=== PATIENT | male | born 1970 | race Caucasian/White ===

== ENCOUNTER 2018-08-18 12:06 | Inpatient (IN) | payer OTHER ==
--- NOTE | 2018-08-18 12:10 | EDPHY ---
HPI/HX/ROS/PE/MDM Narrative: CHIEF COMPLAINT: Cardiac Alert HPI: The patient is a 48 y/o male arriving emergently via EMS as a Cardiac Alert complaining of low chest and upper abdominal pain upon waking this morning. He has a history of hypertension and indigestion. He describes waking up with a "really bad stomachache" and indicates towards his epigastrium. Pain is much more severe than prior reflux and associated with weakness. He describes it as sharp in quality and non-radiating. Nothing makes his pain better or worse. He denies dyspnea or noticing similar symptoms with exertion recently. He has not eaten today. He denies known cardiac disease or history of abdominal surgery. No known family history of cardiac disease or vascular issues. He received aspirin and nitro en route without any change in his pain. REVIEW OF SYSTEMS: A comprehensive 10 system review of systems is otherwise negative aside from elements mentioned in the history of present illness. PMH: Hypertension, hypothyroidism SOCIAL HISTORY: Works in real estate PHYSICAL EXAM: General:Patient is alert, appears uncomfortable, pale. ENT:Eyes are normal to inspection. ENT inspection normal. Neck: Normal inspection. Full range of motion. Respiratory:No respiratory distress. Breath sounds normal bilaterally. Cardiovascular: Regular rate and rhythm. Strong peripheral pulses. Normal cap refill. Abdomen:The abdomen is nontender to palpation. There are no peritoneal signs. Back: Normal to inspection. No tenderness to palpation. Skin: Pale. No rash. Warm and dry. 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 Atraumatic. Full range of motion. Neuro: Oriented x3. Normal motor function. Normal sensory function. ED Course: Cath team at bedside. 1205: Met EMS upon arrival and took report. This is a 48 y/o male with minimal prior history who presents with epigastric pain since waking this morning around 07:00, about 5 hours ago. Symptoms are unchanged after aspirin and nitro en route. He appears pale on exam. BP 104/76, HR 94 upon arrival. Plan for rapid cardiac work up with IV, labs, EKG, and cardiology assessment. 1209: Dr. Luis, pocket machine operator, at bedside. The 12 lead EKG was interpreted by myself. Sinus mechanism. Some lateral ST depression. See hard copy and/or "tracemaster" electronic copy for interpretation. 1210: Plan for echocardiogram. Echo team at bedside. Dr. Luis plans to take patient to minilab operator due to possible echocardiogram and EKG abnormalities and ongoing symptoms. POC troponin is normal. 1223: Patient sent to minilab operator. Critical care time spent by me, Dr. Mott, exclusively with this patient was 15 minutes, exclusive of PA time and exclusive of procedures. The organ system at risk was cardiovascular. Time spent in serial assessments of the patient, consideration of interventions, cardiology consultation, and review of EKG and labs. - Data Points Laboratory Results: Laboratory Results 08/18/18 12:10 08/18/18 08/18/18 08/18/18 12:18 12:13 12:10 WBC RBC Hgb POC Hgb 18.0 gm/dL H gm/dL (13.7-17.5) Hct POC Hct 53 % H % (40-51) MCV MCH MCHC RDW Plt Count MPV Neut % (Auto) Lymph % (Auto) [place] % (Auto) Eos % (Auto) Baso % (Auto) Nucleat RBC Rel Count Absolute Neuts (auto) Absolute Lymphs (auto) Absolute Monos (auto) Absolute Eos (auto) Absolute Basos (auto) Absolute Nucleated RBC Immature Gran % Immature Gran # PT INR APTT POC Sodium 141 mEq/L mEq/L (135-145) Sodium Pending POC Potassium 3.5 mEq/L mEq/L (3.3-5.0) Potassium Pending POC Chloride 103 mEq/L mEq/L (97-110) Chloride Pending Carbon Dioxide Pending Anion Gap Pending POC BUN 13 mg/dL mg/dL (7-23) BUN Pending Creatinine Pending POC Creatinine 0.9 mg/dL mg/dL (0.7-1.3) Estimated GFR Pending Glucose Pending POC Glucose 175 mg/dL H mg/dL (70-100) Calcium Pending Total Bilirubin Pending Conjugated Bilirubin Pending Unconjugated Bilirubin Pending AST Pending ALT Pending Alkaline Phosphatase Pending POC Troponin I 0.01 ng/mL ng/mL (0.00-0.08) Total Protein Pending Albumin Pending Lipase Pending 08/18/18 08/18/18 12:10 12:10 WBC 14.46 10^3/uL H 10^3/uL (3.80-9.50) RBC 5.60 10^6/uL 10^6/uL (4.40-6.38) Hgb 17.6 g/dL H g/dL (13.7-17.5) POC Hgb Hct 49.4 % % (40.0-51.0) POC Hct MCV 88.2 fL fL (81.5-99.8) MCH 31.4 pg pg (27.9-34.1) MCHC 35.6 g/dL g/dL (32.4-36.7) RDW 12.6 % % (11.5-15.2) Plt Count 428 10^3/uL H 10^3/uL (150-400) MPV 10.6 fL fL (8.7-11.7) Neut % (Auto) 83.1 % H % (39.3-74.2) Lymph % (Auto) 10.3 % L % (15.0-45.0) [place] % (Auto) 5.9 % % (4.5-13.0) Eos % (Auto) 0.0 % L % (0.6-7.6) Baso % (Auto) 0.3 % % (0.3-1.7) Nucleat RBC Rel Count 0.0 % % (0.0-0.2) Absolute Neuts (auto) 12.01 10^3/uL H 10^3/uL (1.70-6.50) Absolute Lymphs (auto) 1.49 10^3/uL 10^3/uL (1.00-3.00) Absolute Monos (auto) 0.86 10^3/uL H 10^3/uL (0.30-0.80) Absolute Eos (auto) 0.00 10^3/uL L 10^3/uL (0.03-0.40) Absolute Basos (auto) 0.04 10^3/uL 10^3/uL (0.02-0.10) Absolute Nucleated RBC 0.00 10^3/uL 10^3/uL (0-0.01) Immature Gran % 0.4 % % (0.0-1.1) Immature Gran # 0.06 10^3/uL 10^3/uL (0.00-0.10) PT Pending INR Pending APTT Pending POC Sodium Sodium POC Potassium Potassium POC Chloride Chloride Carbon Dioxide Anion Gap POC BUN BUN Creatinine POC Creatinine Estimated GFR Glucose POC Glucose Calcium Total Bilirubin Conjugated Bilirubin Unconjugated Bilirubin AST ALT Alkaline Phosphatase POC Troponin I Total Protein Albumin Lipase Point of Care Test Results: Chemistry 08/18/18 08/18/18 12:18 12:13 POC Sodium 141 mEq/L mEq/L (135-145) POC Potassium 3.5 mEq/L mEq/L (3.3-5.0) POC Chloride 103 mEq/L mEq/L (97-110) POC BUN 13 mg/dL mg/dL (7-23) POC Creatinine 0.9 mg/dL mg/dL (0.7-1.3) POC Glucose 175 mg/dL H mg/dL (70-100) POC Troponin I 0.01 ng/mL ng/mL (0.00-0.08) ISTAT H&H 08/18/18 12:18 POC Hgb 18.0 gm/dL H gm/dL (13.7-17.5) POC Hct 53 % H % (40-51) General Time Seen by Provider: 08/18/18 12:06 Initial Vital Signs: Initial Vital Signs Temperature (C) 36.6 C 08/18/18 12:08 Heart Rate 92 08/18/18 12:08 Respiratory Rate 18 08/18/18 12:08 Blood Pressure 104/76 08/18/18 12:08 O2 Sat (%) 98 08/18/18 12:08 O2 Delivery Mode Room Air Allergies/Adverse Reactions: No Known Allergies Allergy (Verified 08/18/18 12:13) Home Medications: Medication Instructions Recorded Cyanocobalamin (Vitamin B-12) 1,000 mcg PO DAILY 08/18/18 [Vitamin B-12] Herbals/Supplements -Info Only 1 ea PO DAILY 08/18/18 Lisinopril [Zestril 10 mg (*)] 10 mg PO DAILY 08/18/18 Thyroid [[place] Thyroid 60 MG (*)] 60 mg PO DAILY10 08/18/18 Departure - Departure Disposition: [facility] Inpatient Acute Clinical Impression: Chest pain Qualifiers: Chest pain type: other chest pain Qualified Code(s): R07.89 - Other chest pain Condition: Serious Report Scribed for: Jaime Mott Report Scribed by: Patrizia Corral Date of Report: 08/18/18 Time of Report: 12:15 Physician Review and Approval Statement: Portions of this note were transcribed by an ED scribe. I personally performed the history, physical exam, and medical decision making; and confirm the accuracy of the information in the transcribed note.
[2018-08-18 12:24] LABS: PLATELET COUNT 428 10^3/uL (150-400)
[2018-08-18] MEDS ORDERED: LIDOCAINE 1% 300 MG/30 ML SDV ONE (12:27)
[2018-08-18] MEDS ORDERED: VERAPAMIL 5 MG/2 ML VIAL ONE (12:27)
[2018-08-18] MEDS ORDERED: MIDAZOLAM 2 MG/2 ML VIAL ONE (12:27)
[2018-08-18] MEDS ORDERED: IOPAMIDOL (ISOVUE-370) 150 ML BTL IV ONE (12:27)
[2018-08-18] MEDS ORDERED: HEPARIN 10,000 UNIT/10 ML MDV (1,000 UNIT/ML) ONE (12:27)
[2018-08-18] MEDS ORDERED: fentaNYL 100 MCG/2 ML INJ ONE (12:27)
[2018-08-18 12:32] LABS: INR 0.89 (0.83-1.16); PROTIME(PATIENT) 12.3 SEC (12.0-15.0)
[2018-08-18] MEDS ORDERED: NITROGLYCERIN 0.4 MG BTL SL PRN (13:27)
[2018-08-18] MEDS ORDERED: ATROPINE SULFATE 1 MG/10 ML SYR IVP PRN (13:27)
[2018-08-18] MEDS ORDERED: ONDANSETRON DISINTEGRATING 4 MG TAB PO PRN (13:27)
[2018-08-18] MEDS ORDERED: ONDANSETRON 4 MG/2 ML VIAL IVP PRN ×2 (13:27→16:02)
[2018-08-18] MEDS ORDERED: ACETAMINOPHEN 325 MG TAB PO PRN ×2 (13:27→16:02)
--- NOTE | 2018-08-18 14:17 | GHP ---
CHIEF COMPLAINT: "Doctor, I'm having chest pain." HISTORY OF PRESENT ILLNESS: Mr. Sb Ramos is a 48-year-old man without significant past medi leigh history who was awakened this morning with chest pain in the substernal area just above his xipho id process, which was focal and localized. He has a history of hypertension and indigestion. He ini tially had a really bad stomach ache, and the pain was more severe than prior reflux and associated w ith weakness. He suddenly had worsening pain as well as nausea and vomiting. It got as bad as 05/10 , so he called 911 with concerns that he may be having a heart problem. He received aspirin and nitr oglycerin, and a cardiac alert was called. I was asked to see the patient emergently in the emergenc y department. The patient has not recently traveled, and he does have a history of low testosterone and hypogonadis m and received either a testosterone shot or implant some time in the last 3 or 4 days. His past [facility] history is significant for hypertension and hypothyroidism. 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 He does not smoke, abuse alcohol or illicit drugs. OBJECTIVE: GENERAL: He is awake and alert, oriented x3. NECK: His neck reveals no JVD or carotid bruits. CARDIAC: His heart reveals a normal S1 and S2 with a positive S4. LUNGS: Clear to auscult ation bilaterally. ABDOMEN: Benign with positive bowel sounds. It is nondistended, nontender to pa lpation. I do not appreciate a mass or pulsatile aorta. SKIN: Pale. He does not have a rash. EXT REMITIES: Warm and dry. He has right lower leg atrophy, and the patient reports this is related to a defect. NEUROLOGIC: He is oriented but appears worried and in pain. DATA REVIEWED: The patient's EKG reveals ST-segment depression in leads 2 and AVF as well as V5 and V6 with upsloping depression at rest. There are micro Q-waves in V4, V5 and V6 which are of unclear significance. There is a leftward axis with a -19 axis in the frontal plane. It lists an acute infa rct, but I believe that may be secondary to reversal of leads V3 and V1, therefore suggesting R-wave voltage loss. An old EKG is not available for comparison. His laboratory studies reveal a sodium of 137, potassium 4.80, nonfasting glucose is 172, total bilir ubin 3.4, conjugated bilirubin 2.6, AST 176, ALT 188, alkaline phosphatase 162, an LDH of 743. Point -of-care troponin is negative. IMPRESSION/PLAN: Lower chest pain with EKG changes and resting tachycardia. May be consistent with ischemia given his chest pain syndrome. We are taking him urgently to the catheterization laboratory . If that is negative for myocardial ischemia or obstruction of the coronaries, the patient may bene fit from CT chest to rule out pulmonary embolus given his recent history of testosterone use as well as to scan through the level of his liver and gallbladder to check for either gallstone pancreatitis or cholecystitis. The patient does have an elevated white count as well measured at 14.4 with a left shift. Platelet counts are 426, H and H are 17.6 and 49.4. Blood gas in the dentures lab technician reveals a mil d acidosis with pH 7.32, pCO2 43 and a PO2 of 133 on 2 liters. The patient, as of the time of this d ictation, has a negative heart catheterization for obstructive coronary disease. 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 He does have calcif ication in the proximal LAD on cinefluoroscopy consistent with underlying atherosclerosis; however, n o flow-limiting obstruction, dissection or thrombus is identified. The patient does have elevated bi lirubin, D-dimer and liver enzymes. Lipase is currently pending. I think the patient would benefit from scanning for cholecystitis as well as PE given his recent history of testosterone use. Copy requested to: Primary Care /[id number]/MODL
--- NOTE | 2018-08-18 14:41 | CPEKG ---
Test Reason : OPEN Blood Pressure : / mmHG Vent. Rate : 101 BPM Atrial Rate : 101 BPM P-R Int : 149 ms QRS Dur : 085 ms QT Int : 341 ms P-R-T Axes : -04 -19 032 degrees QTc Int : 442 ms Sinus tachycardia Left ventricular hypertrophy Anterior infarct, old Confirmed by Jaime Mott ([id number]) on 08/18/2018 2:40:36 PM Referred By: Confirmed By:Jaime Mott
--- NOTE | 2018-08-18 14:59 | PDDXCAT ---
Diagnostic Cath Note - . Date: 08/18/18 Rn Diabetes Educator: Janelle Indication: CCC Class III and IV angina on medical treatment - Procedure Access: left wrist Procedure: left heart catheterization, coronary angiography, left ventriculogram - Materials Left Heart Cath size: 5F Left Heart Cath materials: JL4.0, JR4.0, pigtail - Findings-Left Heart Catheterization LM: The left main is 8mm in size and bifurcates into a LAD and circumflex system. There is JAKUB III flow. LAD: The left anterior descending . There is luminal irregularities consistent with athersclorsis. Maximal luminal stenosis is 20%. There is JAKUB III flow. LCX: The circumflex is 4mm in size proximally. There is a high obtuse marginal OM branch that is a function 1mm Ramus vessel. There is an important bifurcating marginal branch with JAKUB III flow. RCA: The right coronary artery is 3.5mm in size and dominant. THe vessel gies rise to a PDA and PLV branch. There is no evidence of flow-limiting disease with JAKUB III flow. EDP: 22mmHg LVEF: Hypercontractile with near mid cavitary obliteration. Wall motion: On LV gram the patient had hypercontractile with near mid cavitary obliteration. There are no resting segmental wall motion abnormalities. The visualized portion of the thoracic aortic valve reveals thress sinuses of valsalva most consistent with a trileaflet valve. There is no gradient on pullback across the aortic valve. There is no evidence of biju dissection or aneurysm formation of the thoracic aorta. - Findings-Right Heart Catheterization AO: 129/70/86 Complications: NONE Estimated blood loss: <50ml Closure method: TR Band Assessment: The patient has [place] vessel coronary disease with a hypercontractile LV with near mid cavitary obliteration. The patient has 10% stenosis in his left anterior descending artery. There is no flow-limiting disease in his left or right coronary systems. The patient had a drastically elevated Lipase, and abnormal liver enzymes, billirubin, alkaline phosphatase. Plan: The patient has [place] vessel coronary disease that does not explain the cause for his chest pain. The patient has drastically elevated Lipase and abnormal liver enzymes. I would like the patient to have a Chest CT Angio to rule out pulmonary embolus given elevated D-Dimer, and also to access the gallbladder, and pancreas. Intervention: NONE Patient Problems: Problems Problem Status Onset Chest pain Acute
[2018-08-18] MEDS: NS 1,000 ML IV SCH ×2 (15:03→18:29)
--- NOTE | 2018-08-18 15:16 | PDGENHP ---
History and Physical History and Physical: HOSPITALIST CONSULT NOTE the patient prefers to be addressed by his middle name Ronald CC: I am asked by the Cardiology service to assist in the care of this patient who comes in with abdominal and chest pain today HISTORY: I am asked by Dr Luis to evaluate and care for this patient who presented earlier today with epigastric and left costochondral pain nausea and vomiting. With ekg abnormalities he was taken emergently to the cardiac lab where he had no significant stenotic coronary disease. There was luminal disease in the LAD with Maximon 20% stenosis. He is in the CVC now recovering from that procedure. However CT scanning shows and he has elevated liver enzymes and bilirubin and a lipase > 20,000. On my review of the patient's symptoms he had an episode in early July with epigastric pain nausea and vomiting that lasted approximately 2 days. Those symptoms resolved but since that time he has felt fatigued with very low energy overall. He did not have any medical evaluation prior to today for these symptoms. This morning he woke up with severe pain in the epigastrium along the left costal margin with nausea and vomiting. He was diaphoretic. With these symptoms he presented to the emergency room. They did not check his temperature at home. There is no blood in his emesis. He has not noticed any jaundice. There is no pain in the back. His bowel function has been normal. He has not traveled anywhere had any exposures to suspicious foods or beverages. None of his relatives or contacts are sick with any similar illness. He has no history of abdominal illness or surgeries prior to the above. He has no use of nonsteroidal anti-inflammatories, no use of alcohol, no history of exposure to potentially toxic chemicals, no significant trauma, and no family history of any abdominal or digestive illnesses. ROS: A comprehensive 10 system review revealed no other significant findings PAST MEDICAL HISTORY: Hypertension Hypothyroidism on replacement FAMILY MEDICAL HISTORY: No abdominal or digestive illnesses of concern, specifically no gallstones and no autoimmune diseases SOCIAL HISTORY: Works as a realtor No tobacco Occasionally half glass of wine but really rare alcohol lives with his is here at the bedside MEDICATIONS: The patients list has been reconciled by our clinical pharmacist in the EMR. I have reviewed the list and ordered appropriate medicines. Lisinopril for hypertension, [place] Thyroid, "bio T" injections PHYSICAL EXAMINATION: Vital Signs: All normal without fever so far It Service Manager: Sinus Examination: General: alert, oriented, good mentation, relaxed but does appear somewhat uncomfortable Skin: warm, dry, good color, no rash or jaundice HEENT: normal Neck: no mass or jvd Resps: relaxed Lungs: clear breath sounds Heart: regular, no murmur Abdomen: soft, nondistended, with some tenderness across the upper abdomen but no rebound or mass, bowel sounds are present Upper Extremities: normal Lower Extremities: no edema, warm No Bleeding or bruising Neurologic: normal speech/language, normal case management assistant, no focal weakness IV site: looks normal LABORATORY DATA: Lipase greater than 20,000 AST 176, ALT 188, alk-phos 162, bilirubin 3.4 Normal basic metabolic panel except for [place] [id number] Hemoglobin is at 17 and hematocrit 49, question hemoconcentration RADIOLOGY STUDIES: I reviewed images from CT scan of the chest and upper abdomen today. I agree that there is no evidence of pulmonary embolism. There is obvious pancreatitis with no evidence of any complications such as infection necrosis or pseudocyst 12 LEAD EKG: Sinus rhythm with some nonspecific ST abnormalities and poor R-wave progression ASSESSMENT: * acute pancreatitis, most likely 2nd episode, most likely due to gallstones but cause is uncertain * Hyperglycemia, question diabetes verses stress-induced hyperglycemia from illness * Dehydration from nausea vomiting * Chronic hypothyroidism on replacement therapy * Chronic hypertension on lisinopril * Mild non occlusive coronary disease with 20% lad stenosis; aggressive prevention measures should be considered with the patient through Cardiology and his primary care service I reviewed the above-listed diagnoses with the patient and with Dr. Martin Luis. PLANS: * Hospital medicine service will take over as primary at this time for this admission * Will change to inpatient status anticipating that this is most likely caused by gallstones and we will likely need to either remove stones or do a cholecystectomy therefore requiring more than 2 nights * Patient is on risk precautions after angiography per Dr. Luis * NPO for the moment, IV hydration * Pain and nausea medicines p.r.n. * Will check a lipid panel to look at triglycerides for his pancreatitis, as well as his cholesterol with coronary atherosclerosis * Check hemoglobin A1c due to his elevated blood sugar * Abdominal ultrasound * Dr. Oleg Herrera has been consulted from Gastroenterology Note that the patient is a [place] patient but states he does not currently have a primary care doctor. I did recommend to the patient that he establish with a primary care doctor in the very near future at [place]. I have reviewed the patient's case in detail with Dr. Martin Luis I have reviewed the patient's past medical records as part of this assessment, including previous emergency visit records here
--- NOTE | 2018-08-18 15:33 | GCON ---
CHIEF COMPLAINT: Pancreatitis, abnormal liver function tests. Epigastric pain. HISTORY OF PRESENT ILLNESS: I have been asked to see this patient in consultation by Dr. Martin Luis for evaluation for pancreatitis and possible gallstone pancreatitis. This 48-year-old gentleman was well until this morning. He woke up with severe epigastric retrosternal chest pain. Pain was colicky in nature. He had associated retching. The ambulance was called. He was brought to the emergency department. He does have a history of hypertension. No prior history of any GI symptoms. The patient was noted to have some EKG changes and resting tachycardia. Ischemic cardiac disease was considered given patient's chest pain syndrome. He went to cardiac cath which was unremarkable. He was noted to have abnormal liver function tests and elevated lipase consistent with pancreatitis. He had a chest CT to rule out pulmonary embolus. Chest CT was remarkable without evidence of pulmonary embolus. However, there was evidence of acute pancreatitis and cholelithiasis within the gallbladder. LABORATORY DATA: Did reveal abnormal liver function tests with a total bilirubin of 3.4, AST 176, ALT of 188, alkaline phosphatase of 162. Lipase was greater than 2000. White count was 14.46 with a hemoglobin of 18 and hematocrit 53. PAST MEDICAL HISTORY: Remarkable for hypertension, hypothyroidism, B12 deficiency, and testosterone deficiency. PAST SURGICAL HISTORY: Remarkable for right shoulder surgery. FAMILY HISTORY: Remarkable for hypertension, otherwise negative as pertains to chief complaint. SOCIAL HISTORY: Nonsmoker, nondrinker. MEDICATIONS: Prior to admission include lisinopril, Synthroid, B12 and testosterone as well as estrogen. ALLERGIES: He has no known drug allergies. REVIEW OF SYSTEMS: Negative 10 systems other than mentioned in HPI. PHYSICAL EXAM: VITAL SIGNS: 106/71, heart rate of 90, respiratory rate 18, 97% saturation on room air. GENERAL: A very pleasant gentleman, no acute distress. HEENT: Normocephalic, atraumatic. EOMI. NECK: Supple. No cervical adenopathy. No thyromegaly. Mucous membranes moist. LUNGS: Clear. CARDIAC: Normal S1, S2 without murmur. ABDOMEN: Soft, but tenderness to palpation in the epigastrium. No hepatosplenomegaly. EXTREMITIES: No clubbing , cyanosis, edema. NEURO: Nonfocal. SKIN: Warm, dry, intact. PSYCH: Alert oriented x3 with normal affect. LABORATORY DATA: Remarkable for liver function tests as mentioned, total bilirubin 3.4, AST of 176, ALT of 188, alkaline phosphatase of 162, lipase of greater than 2000. IMPRESSION: A 48-year-old male with sudden onset of epigastric and low chest pain consistent with acute gallstone pancreatitis. Evidence of gallstones on CT scan of the chest. Patient with obstructive liver enzymes consistent with choledocholithiasis and passage of common bile duct stone. RECOMMENDATIONS: 1. N.p.o., 2. IV fluids. 3. IV analgesia. 4. Right upper quadrant ultrasound to evaluate common bile duct and for evidence of choledocholithiasis. May need to consider MRCP or ERCP pending results of ultrasound. We will follow with you. /[id number]/MODL MTDD
[2018-08-18] MEDS ORDERED: ZOLPIDEM TARTRATE 5 MG TAB PO PRN (16:02)
[2018-08-18] MEDS: HYDROmorphONE/DILAUDID 1 MG/ML INJ IVP PRN ×2 (16:14→20:33)
[2018-08-18] MEDS: OXYCODONE/APAP 5/325 TAB PO PRN (20:37)
[2018-08-18] MEDS ORDERED: MELATONIN 3 MG TAB PO SCH (21:00)
[2018-08-19 04:56] LABS: PLATELET COUNT 304 10^3/uL (150-400)
[2018-08-19] MEDS: OXYCODONE/APAP 5/325 TAB PO PRN ×2 (06:15→11:30)
[2018-08-19] MEDS ORDERED: CYANO/VITAMIN B12 1000 MCG TAB PO SCH (09:00)
[2018-08-19] MEDS ORDERED: LISINOPRIL 10 MG TAB PO SCH (09:00)
[2018-08-19] MEDS ORDERED: THYROID 60 MG TAB PO SCH (10:00)
--- NOTE | 2018-08-19 10:43 | HOSPPROG ---
Hospitalist Progress Note Assessment/Plan: Gallstone pancreatitis - US with extensive cholelithiasis, no ductal dilatation , LFT's trending down -cont NPO, pain control -surgery consult as pt will need cholecystectomy when recovered Hypertension - normotensive on home dose of lisinopril Leukocytosis - suspect stress response to above, no e/o bacterial infection -follow Full code Dispo - cont inpt. CM to check with [place] re: transfer vs stay here, will hold off on surgery consult until this is clarified Objective: Vital Signs Temp Pulse Resp BP Pulse Ox 36.5 C 104 H 19 127/81 H 96 08/19/18 04:00 08/19/18 09:21 08/19/18 09:21 08/19/18 09:21 08/19/18 09:21 Laboratory Results 08/19/18 03:40 08/18/18 08/19/18 08/20/18 05:59 05:59 05:59 Intake Total 2250 Output Total 700 Balance 1550 PT 12.3 SEC (12.0-15.0) 08/18/18 12:10 INR 0.89 (0.83-1.16) 08/18/18 12:10 ICD10 Worksheet Patient Problems: Problems Problem Status Onset Chest pain Acute
--- NOTE | 2018-08-19 10:53 | PDMN ---
Medical Necessity Medical necessity: Pt meets inpt criteria per MD order and MCG M-250, Pancreatitis, 2 days. 48 y/o presenting w/severe epigastric and L costochondral pain w/nausea/vomiting and EKG changes, taken for emergent heart cath- mild non- occlusive coronary disease found, abd US revealed gall bladder completely filled w/gallstones, admitted w/acute pancreatitis (lipase>52485, amylase>3000) most likely due to gallstones and dehydration from N/V. NPO, IVF, IV pain meds, surg intervention pending, anticipate>2Mn for ongoing eval/management of above.
[2018-08-19] MEDS: NS 1,000 ML IV SCH (11:29)
[2018-08-19 11:34] VITALS: BP 124/88
--- NOTE | 2018-08-19 11:53 | SOAPPROG ---
SOAP Progress Note Assessment/Plan: Assessment: 48-year-old male who who initially presented with abdominal and chest discomfort with concerns regarding underlying ischemia. Underwent cardiac catheterization which did not reveal any evidence of coronary disease. Subsequently he has developed findings consistent with choledocholithiasis and gallstone pancreatitis which is being managed by [facility] and Gastroenterology. His access site is clean and dry. He has a nice radial pulse. He currently is not describing any cardiovascular symptoms. Plan: At this point, we will sign off. Please feel free to re-consult if needed. 08/19/18 11:49 Subjective: He has no complaints of chest discomfort today. He does, however, continued to complain of abdominal discomfort which is being controlled with narcotic analgesics. He is being followed by Gastroenterology. I reviewed his cardiac catheterization report which did not indicate any significant CAD. Objective: Vital Signs Temp Pulse Resp BP Pulse Ox 36.5 C 103 H 19 124/88 H 94 08/19/18 04:00 08/19/18 11:34 08/19/18 11:34 08/19/18 11:34 08/19/18 11:34 Laboratory Results 08/19/18 03:40 08/18/18 08/19/18 08/20/18 05:59 05:59 05:59 Intake Total 2250 Output Total 700 Balance 1550 PT 12.3 SEC (12.0-15.0) 08/18/18 12:10 INR 0.89 (0.83-1.16) 08/18/18 12:10 Physical Exam - Physical Exam General Appearance: WD/WN, alert EENT: PERRL/EOMI, normal ENT inspection, pharynx normal, TMs normal Neck: non-tender, full range of motion, supple, normal inspection Respiratory: chest non-tender, lungs clear, normal breath sounds Cardiac/Chest: normal peripheral pulses, regular rate, rhythm Peripheral Pulses: 2+: carotid (R), carotid (L), femoral (R), femoral (L), dorsalis-pedis (R), dorsalis-pedis (L) Male Genitalia: deferred Rectal: deferred Back: Normal inspection Skin: normal color, warm/dry Lymphatic: no adenopathy Extremities: normal range of motion, non-tender, normal inspection, normal capillary refill Neuro/Psych: no motor/sensory deficits, alert, normal mood/affect, oriented x 3 ICD10 Worksheet Patient Problems: Problems Problem Status Onset Chest pain Acute
--- NOTE | 2018-08-19 12:27 | SOAPPROG ---
SOAP Progress Note Assessment/Plan: Assessment: Gallstone Pancreatitis CBD not dilated and LFt improved retained CBD stone less likely Plan: Rec surgical consult, paitent may be transferred to [place] Would suggest IOC at time of surgery to assure CBD clear or consider MRCP per surgical preference Will sign off for now, please reconsult if pt stays here and has abnormal IOC. 08/19/18 12:24 Subjective: CC abd pain Overall better with Percocet, not passing gas Objective: Vital Signs Temp Pulse Resp BP Pulse Ox 36.5 C 103 H 19 124/88 H 94 08/19/18 04:00 08/19/18 11:34 08/19/18 11:34 08/19/18 11:34 08/19/18 11:34 Laboratory Results 08/19/18 03:40 08/18/18 08/19/18 08/20/18 05:59 05:59 05:59 Intake Total 2250 Output Total 700 Balance 1550 PT 12.3 SEC (12.0-15.0) 08/18/18 12:10 INR 0.89 (0.83-1.16) 08/18/18 12:10 Physical Exam - Physical Exam General Appearance: alert Respiratory: lungs clear Cardiac/Chest: regular rate, rhythm Abdomen: soft (tender to palapation ) ICD10 Worksheet Patient Problems: Problems Problem Status Onset Chest pain Acute
--- NOTE | 2018-08-19 14:11 | ASMTDCNOTE ---
Case Management Discharge Discharge Order Complete? Answers: Yes Patient to Obtain Answers: Other Notes: Good Abdirahman Medications Transportation Arranged Answers: [facility] Stretcher Transport will Pick (Date 08/19/2018 01:30 PM & Time) EMTRICHARD Complete Answers: Yes Notes: handed to [facility] Case Management Transport Answers: No Form Complete Faxed Final Orders Answers: No Notes: hard copies provided to [facility] staff Agency/Facility Transfer Answers: Yes Report Printed & Faxed to Receiving Agency Family Notified Answers: Yes Notes: in room Discharge Comments Notes: 08/19/2018 Case Management Note Pt dmitted for pancreatitis needing surgery. Phone call to [facility]. [facility] requesting pt transfer to [facility]. [facility] arranged transport with [facility]. Pt pick up and delivery driver at 14:00. RN called report. EMTRICHARD completed. Providing imaging reports on CD for [facility]. Dr. Carolina Rendon from [facility] [phone]. Dr. Adan Amaya was admitting MD. Date Signed: 08/19/2018 02:11 PM Electronically Signed By:Aurea Conti RN
--- NOTE | 2018-08-19 14:12 | ASDISCHSUM ---
Discharge Information Plan Status:Acute Transfer Medically Cleared to Leave:08/18/2018 Discharge Date:08/19/2018 02:07 PM CM D/C Disposition:[facility] ADT D/C Disposition:[facility] Projected Discharge Date:08/21/2018 11:00 AM Transportation at D/C:ALS/BLS Discharge Delay Reason: Follow-Up Date:08/21/2018 11:00 AM Discharge Slot: Final Diagnosis: Placement Information Referral Type:*Usp/SNF Referral ID:[id number] Provider Name: Address 1: Phone Number: Address 2: Fax Number: City: Selection Factors: State: Patient Contact Information Contact Name:EL Relationship: Address:[address] City:[facility] Phone: [facility]/Zip Code:[place] [address] Email: Financial Information Financial Class:HMO and PPO Plans Primary Plan Desc:[facility] Primary Plan Number:[id number] Secondary Plan Desc: Secondary Plan Number: Assessment Information LACE LACE Comorbidities - select Answers: Other Notes: HTN; Hypothyroid all that apply # of Emergency department Answers: 1-2 visits in the last 6 months Score: 2 Date Signed: 08/19/2018 02:12 PM Electronically Signed By:Aurea Conti RN Case Management Discharge Plan Note Case Management Discharge Discharge Order Complete? Answers: Yes Patient to Obtain Answers: Other Notes: Good Abdirahman Medications Transportation Arranged Answers: [facility] Stretcher Transport will Pick (Date 08/19/2018 01:30 PM & Time) KAMLESHALA Complete Answers: Yes Notes: handed to [facility] Case Management Transport Answers: No Form Complete Faxed Final Orders Answers: No Notes: hard copies provided to [facility] staff Agency/Facility Transfer Answers: Yes Report Printed & Faxed to Receiving Agency Family Notified Answers: Yes Notes: in room Discharge Comments Notes: 08/19/2018 Case Management Note Pt dmitted for pancreatitis needing surgery. Phone call to [place]. [place] requesting pt transfer to [facility]. [facility] arranged transport with [facility]. Pt last picker at 14:00. RN called report. KITTY completed. Providing imaging reports on CD for [facility]. Dr. Carolina Rendon from [place] [phone]. Dr. Adan Amaya was admitting MD. Date Signed: 08/19/2018 02:11 PM Electronically Signed By:Aurea Conti RN Intervention Information
--- NOTE | 2018-08-19 19:01 | GDS ---
DISCHARGE DIAGNOSES: 1. Gallstone pancreatitis. 2. Hypertension. 3. Leukocytosis. CONSULTANTS: 1. Dr. Chauncey Herrera, Gastroenterology. 2. Dr. Alexander Mauro, Cardiology. HISTORY: For details, please see history and physical dated August 18, 2018. In brief, the patient is a 48-year-old male with a history of hypertension, hypothyroidism, and hypogonadism, who presented to the hospital complaining of chest pa in. He was admitted for further management. HOSPITAL COURSE: The patient admitted to the cardiology service due to concern for acute coronary sy ndrome. He underwent a left heart catheterization on August 18, 2018, which revealed 10% stenosis i n his left anterior descending artery. There was no flow-limiting disease. It was thought his prese nting symptoms were not related to a cardiac event. Instead, attention was turned to his elevated li pase and amylase, as well as elevated liver function enzymes. He an underwent abdominal ultrasound w hich showed extensive cholelithiasis, but no intrahepatic ductal dilatation, with a common duct measu rement of 3.7 mm. His LFTs have trended down, with normalization of his bilirubin and alkaline phosp hatase, and his transaminases were also significantly lower on the day of discharge. Given that he i s a [place] patient, the case was reviewed with a [place] team, and they wished for him to transfer [facility] to their hospital for further management. It is recommended he have surgical consultations, and he should likely undergo cholecystectomy during his hospitalization to prevent rehospitalization given his ongoing symptoms suggestive of biliary colic and now presenting with a moderate case of gallstone pancreatitis. He has been continued on n.p.o. for bowel rest and pain control, and surgical consult has been deferred at this point while his pancreatitis cools off. He can undergo surgery consultati on upon transfer to [facility]. Case was discussed with a [place] physician. DISPOSITION: Patient is discharged to [facility] in stable condition for further care per his [place] team. DISCHARGE MEDICATIONS: Please see [place] completed outpatient medication list. Patient will navdeep nue all outpatient medications as previously prescribed, including [place] Thyroid 60 mg p.o. daily, l isinopril 10 mg p.o. daily, vitamin B12. There are no new medications upon transfer. His pain has be en managed with IV Dilaudid. /[id number]/MODL
== END 2018-08-19 14:07 | disposition short-term general hospital (02) | DRG 440 ==
LOC: EDUNIT# → FCATH 14:24 → F2W 15:10 → OBSVTOIN 16:16
PROVIDERS: ADMIT Internal Medicine Cardiovascular Disease; ATTEND Internal Medicine
PROC: B2111ZZ Fluoroscopy of Multiple Coronary Arteries using Low Osmolar Contrast (ICD-10-PCS; principal; 2018-08-18)
PROC: 4A023N8 Measurement of Cardiac Sampling and Pressure, Bilateral, Percutaneous Approach (ICD-10-PCS; principal; 2018-08-18)
PROC: B2151ZZ Fluoroscopy of Left Heart using Low Osmolar Contrast (ICD-10-PCS; principal; 2018-08-18)
DX: K85.10 Biliary acute pancreatitis without necrosis or infection (principal); K80.50 Calculus of bile duct without cholangitis or cholecystitis without obstruction; I10 Essential (primary) hypertension; E03.9 Hypothyroidism, unspecified; E86.0 Dehydration; I25.10 Atherosclerotic heart disease of native coronary artery without angina pectoris
CPT/HCPCS: 82435-PO; 82565-PO; 82947-PO; 84132-PO; 84295-PO; 84484-ER; 84520-PO; 85014-ER; C1769; C1887; J1170; J1644; J2250; J2270; J2405; J3010; Q9967